=== PATIENT | female | born 1955 | race Caucasian/White ===

== ENCOUNTER 2017-08-24 13:32 | Emergency (ER) | payer BC, OTHER ==
[2017-08-24 13:41] VITALS: BP 158/82
--- NOTE | 2017-08-24 13:48 | EDM.PDOC ---
ED HPI GENERAL MEDICAL PROBLEM - General Chief Complaint: ENT Problem Stated Complaint: CANT HEAR Time Seen by Provider: 08/24/17 13:47 - History of Present Illness INITIAL COMMENTS - FREE TEXT/NARRATIVE: 61-year-old female presents emergency room with hearing loss. Patient awoke this morning with significantly diminished hearing her left ear which is compromised with a chronically perforated eardrum seems to have decreased hearing but most notably was her right ear where she can hear very little. Her left ear she can hear wavelike activity. She can understand slow slightly louder than normal speech. The patient had surgical repair about 4 years ago her left eardrum apparently this did not work. Patient was seen in the clinic a little over a week ago with URI like symptoms and was started on Cipro eardrops and antibiotics as well as brief course of steroids with sounds like a Medrol Dosepak. Patient also complains of left leg pain that comes and goes mostly in the back of her calf. - Related Data Allergies Allergy/AdvReac Type Severity Reaction Status Date / Time codeine Allergy Cannot Verified 12/16/14 20:31 Remember morphine Allergy Cannot Verified 12/16/14 20:31 Remember Home Meds: Home Meds Aspirin/Calcium Carbonate [Anita Women's Aspirin Tablet] 81 mg PO DAILY [History] Hydrochlorothiazide 25 mg PO DAILY 12/16/14 [History] Simvastatin [Zocor] 20 mg PO DAILY 12/16/14 [History] Ascorbic Acid/Multivit-Min [Emergen-C 1,000 mg Packet] 1 pack PO DAILY 08/24/17 [History] predniSONE [Prednisone] 60 mg PO Q24H #30 tablet 08/24/17 [Rx] Past Medical History Other HEENT History: ear infections - Past Surgical History Other HEENT Surgeries/Procedures: ear mesh to left ear Other Musculoskeletal Surgeries/Procedures:: plate to left humerus Social & Family History - Tobacco Use Smoking Status *Q: Current Every Day Smoker Years of Tobacco use: 30 - Recreational Drug Use Recreational Drug Use: No ED ROS ENT - Review of Systems Review Of Systems: See Below Constitutional: Reports: No Symptoms HEENT: Reports: Hearing Loss, Rhinitis, Sinus Problem Respiratory: Reports: No Symptoms Cardiovascular: Reports: No Symptoms GI/Abdominal: Reports: No Symptoms : Reports: No Symptoms Skin: Reports: No Symptoms Neurological: Reports: No Symptoms. Denies: Confusion, Difficulty Walking, Weakness Psychiatric: Reports: No Symptoms ED EXAM, ENT - Physical Exam Exam: See Below Exam Limited By: No Limitations General Appearance: Alert, No Apparent Distress Eye Exam: Bilateral Eye: Normal Inspection Ears: Normal External Exam, Normal Canal, Other (Left tympanic membrane is indeed perforated there is some cerumen near the tympanic membrane right is minimally erythematous) Nose: Normal Inspection, Normal Mucousa, Other (Mild nasal discharge) Mouth/Throat: Normal Inspection, Normal Gums, Normal Lips, Normal Oropharynx Head: Atraumatic, Normocephalic Neck: Normal Inspection, Supple, Non-Tender, Full Range of Motion, Limited Range of Motion Respiratory/Chest: No Respiratory Distress, Lungs Clear, Normal Breath Sounds Cardiovascular: Normal Peripheral Pulses, Regular Rate, Rhythm, No Edema Neurological: Alert, Oriented, Normal Cognition, Normal Gait, No Motor/Sensory Deficits, Other (Other than her hearing deficit cranial nerves are otherwise normal) Course - Vital Signs Last Recorded V/S: Last Vital Signs Temp 36.7 C 08/24/17 13:39 Pulse 95 08/24/17 13:39 Resp 20 08/24/17 13:39 BP 158/82 H 08/24/17 13:39 Pulse Ox 96 08/24/17 13:39 - Orders/Labs/Meds Labs: Laboratory Tests 08/24/17 Range/Units 14:25 D-Dimer, Quantitative 0.25 (0.19-0.59) mg/L Meds: Medications Discontinued Medications Generic Name Dose Route Start Last Admin Trade Name Freq PRN Reason Stop Dose Admin Prednisone 60 mg 08/24/17 14:18 08/24/17 14:25 Prednisone PO 08/24/17 14:19 60 mg ONETIME ONE Administration - Re-Assessments/Exams Free Text/Narrative Re-Assessment/Exam: 08/24/17 17:[address] Vargas implementation manager ear nose and throat at [place] in [place] he agrees with the prednisone and would like to see the patient at the end of this week in the office. Patient's d-dimer for her leg pain is negative. Departure - Departure Time of Disposition: 17:24 Disposition: Home, Self-Care 01 Clinical Impression: Sudden hearing loss - Discharge Information Prescriptions: predniSONE [Prednisone] 60 mg PO Q24H #30 tablet Instructions: Hearing Loss Referrals: Grace Hurtado MD [Primary Care Provider] - Forms: ED Department Discharge Additional Instructions: Return to the emergency room with any questions problems worsening symptoms. You have been started on prednisone this is to help with inflammation involving the nerves that go to your ears. Hopefully ear hearing will return, this may take a few days to a few weeks. Some people can have permanent hearing loss. Follow-up with Dr. Vargas at the end of this week, or Friday he has an animal researcher in [place]. [phone]
[2017-08-24] MEDS ORDERED: predniSONE 20 MG Tab PO ONE (14:18)
== END 2017-08-24 17:40 | disposition home or self-care (01) ==
LOC: JD.ED 13:32
DX: H91.90 Unspecified hearing loss, unspecified ear (principal); F17.200 Nicotine dependence, unspecified, uncomplicated; Z88.5 Allergy status to narcotic agent; Z79.82 Long term (current) use of aspirin; Z79.899 Other long term (current) drug therapy
CPT/HCPCS: 36415; 85379; 99283; A9270